=== PATIENT | male | born 1965 | race African-American/Black ===

== ENCOUNTER 2021-11-25 09:51 | Emergency (ER) | payer MEDICAID ==
[~2021-11-25] VITALS: Ht 167.6 cm; Wt 75.0 kg
[2021-11-25] MEDS ORDERED: GABA-1181 PO (09:56)
[2021-11-25] MEDS ORDERED: SODIUM CHLORIDE 0.9% 250 ML IRRIG SOLUTION BOTTLE IRRIG ONE (12:45)
[2021-11-25] MEDS ORDERED: LIDOCAINE 1% 10 ML VIAL ID ONE (12:45)
[2021-11-25] MEDS ORDERED: PERTUSS(ACELL),DIPH,TET VAC/PF 0.5 ML SYRINGE IM. ONE (12:45)
[2021-11-25 14:15] VITALS: BP 135/72
== END 2021-11-25 14:19 | disposition home or self-care (01) ==
LOC: EMS 09:53
DX: S61.411A Laceration without foreign body of right hand, initial encounter (principal); F17.210 Nicotine dependence, cigarettes, uncomplicated; X78.8XXA Intentional self-harm by other sharp object, initial encounter; Y93.89 Activity, other specified; Y92.89 Other specified places as the place of occurrence of the external cause; Y99.8 Other external cause status
CPT/HCPCS: 99283; 90715; 90471; 12001; J3490